=== PATIENT | female | born 1975 | race Caucasian/White ===

== ENCOUNTER → 2016-05-30 | Outpatient (CLI) | payer OTHER ==
[~2016-05-30] MED LIST: CATAPRES TTS 3 P1 EA TD; HYDROCHLOROTHIA25 MG PO; IBUPROFEN400 MG PO; LISINOPRIL10 MG PO; METFORMIN HYDR500 GM PO; NORVASC 5 MG TAB5 MG PO; NORVASC5 MG PO
== END ==
LOC: RAD 09:31
DX: M54.5 Low back pain (principal)
CPT/HCPCS: 74022

== ENCOUNTER 2016-07-16 08:16 | Emergency (ER) | payer OTHER ==
[2016-07-16 09:33] LABS: HEMOGLOBIN 14.5 gm/dl (12.3-15.3); RED BLOOD COUNT 4.82 M/UL (4.00-5.10); WHITE BLOOD COUNT 8.5 K/UL (4.5-11.0)
[2016-07-16 09:48] LABS: BUN/CREATININE RATIO 12 (0-10)
== END 2016-07-16 13:30 | disposition home or self-care (01) ==
LOC: ER1 08:16
PROVIDERS: Physician Assistant
DX: R51 Headache (principal); I10 Essential (primary) hypertension; Z79.899 Other long term (current) drug therapy; Z98.51 Tubal ligation status; E05.00 Thyrotoxicosis with diffuse goiter without thyrotoxic crisis or storm
CPT/HCPCS: 36415; 70450; 71010; 80053; 82550; 82553; 83874; 84484; 85025; 93005; 96365; 96375; 99284; J0360; J1200; J1885; J2550; J2765

== ENCOUNTER → 2020-06-26 | Outpatient (CLI) | payer BC, OTHER ==
[~2020-06-26] MED LIST changes: +CYANOCOBAL1000 MCG/1 IM; +DIABETA 5 MG TAB5 MG PO; +DITROPAN 5 MG TA5 MG PO; +DOCUSATE SODIU250 MG PO; +FERREX 150150 MG PO; +GLUCOPHAGE500 MG PO; +HYDROCODONE-AC1 EACH PO; +IBUPROFEN600 MG PO; +K-TAB ER10 MEQ PO; +LASIX TAB 20 MG20 MG PO; +STOOL SOFTENER240 MG PO; +TOPROL XL200 MG PO; +TRAMADOL HCL50 MG PO; +VALACYCLOVIR500 MG PO
[2020-06-26 08:53] LABS: HEMOGLOBIN 14.3 gm/dl (12.3-15.3); RED BLOOD COUNT 4.78 M/UL (4.00-5.10); WHITE BLOOD COUNT 9.1 K/UL (4.5-11.0)
[2020-06-26 09:10] LABS: BUN/CREATININE RATIO 17 (0-10)
== END ==
LOC: OPSV2 08:00
PROVIDERS: Obstetrics & Gynecology
DX: Z01.812 Encounter for preprocedural laboratory examination (principal); N93.8 Other specified abnormal uterine and vaginal bleeding
CPT/HCPCS: 36415; 80048; 85025; 93005

== ENCOUNTER 2020-07-03 06:33 | Day surgery (SDC) | payer BC, OTHER ==
[~2020-07-03] VITALS: Ht 165.1 cm; Wt 80.3 kg
[~2020-07-03 06:33] MED LIST changes: -DITROPAN 5 MG TA5 MG PO; -DOCUSATE SODIU250 MG PO; -HYDROCODONE-AC1 EACH PO; -IBUPROFEN600 MG PO
[2020-07-03] MEDS ORDERED: HYDROCHLOROTHIA25 MG PO (07:04)
[2020-07-03] MEDS ORDERED: DOCUSATE SODIU250 MG PO (08:05)
[2020-07-03] MEDS ORDERED: DITROPAN 5 MG TA5 MG PO (08:05)
[2020-07-03] MEDS ORDERED: IBUPROFEN600 MG PO (08:05)
[2020-07-03] MEDS ORDERED: HYDROCODONE-AC1 EACH PO (08:05)
== END 2020-07-03 15:29 | disposition home or self-care (01) ==
LOC: OR 06:33 → OB 10:27 → OR 11:30 → OB 12:46 → OR 15:29
DX: N72 Inflammatory disease of cervix uteri (principal); N87.9 Dysplasia of cervix uteri, unspecified; N80.2 Endometriosis of fallopian tube; K66.0 Peritoneal adhesions (postprocedural) (postinfection); M62.89 Other specified disorders of muscle; I10 Essential (primary) hypertension; E11.9 Type 2 diabetes mellitus without complications; G43.009 Migraine without aura, not intractable, without status migrainosus; K21.9 Gastro-esophageal reflux disease without esophagitis; E05.00 Thyrotoxicosis with diffuse goiter without thyrotoxic crisis or storm; Z88.8 Allergy status to other drugs, medicaments and biological substances; Z79.84 Long term (current) use of oral hypoglycemic drugs; Z79.899 Other long term (current) drug therapy
CPT/HCPCS: 81001; 82962; C1769; J0690; J1100; J2001; J2250; J2405; J2704; J2710; J3010; J3420; J7030; J7120

== ENCOUNTER → 2020-08-03 | Outpatient (CLI) | payer BC, OTHER ==
[~2020-08-03] MED LIST changes: +DITROPAN 5 MG TA5 MG PO; +DOCUSATE SODIU250 MG PO; +HYDROCODONE-AC1 EACH PO; +IBUPROFEN600 MG PO
== END ==
LOC: LAB 14:20
DX: Z00.00 Encounter for general adult medical examination without abnormal findings (principal); I12.9 Hypertensive chronic kidney disease with stage 1 through stage 4 chronic kidney disease, or unspecified chronic kidney disease; N18.9 Chronic kidney disease, unspecified
CPT/HCPCS: 36415; 82565; 84520

== ENCOUNTER 2020-11-16 10:49 | Inpatient (IN) | payer BC ==
[~2020-11-16] VITALS: Ht 175.3 cm; Wt 77.1 kg
[~2020-11-16 10:49] MED LIST changes: +GLUCOPHAGE 500500 MG PO; -GLUCOPHAGE500 MG PO; -LISINOPRIL10 MG PO
[2020-11-16 11:23] LABS: HEMOGLOBIN 14.4 gm/dl (12.3-15.3); RED BLOOD COUNT 4.65 M/UL (4.00-5.10); WHITE BLOOD COUNT 6.5 K/UL (4.5-11.0)
[2020-11-16] MEDS ORDERED: LISINOPRIL30 MG PO (11:42)
[2020-11-16 11:46] LABS: BUN/CREATININE RATIO 16 (0-10)
[2020-11-16] MEDS ORDERED: CLONIDINE HCL0.3 MG PO (14:17)
[2020-11-16] MEDS ORDERED: BUTALB-ACETAMI1 EAC1 PO (14:25)
[2020-11-16] MEDS ORDERED: CHLORTHALIDONE25 MG PO (14:25)
[2020-11-16] MEDS ORDERED: TYLENOL EXTRA500 MG PO (14:26)
[2020-11-16] MEDS ORDERED: TAMSULOSIN HCL0.4 MG PO (14:26)
[2020-11-16] MEDS ORDERED: MUCINEX600 MG PO (14:28)
[2020-11-16] MEDS ORDERED: LORATADINE10 MG PO (14:28)
[2020-11-17 04:02] LABS: HEMOGLOBIN 12.8 gm/dl (12.3-15.3); RED BLOOD COUNT 4.25 M/UL (4.00-5.10); WHITE BLOOD COUNT 7.1 K/UL (4.5-11.0)
[2020-11-17 04:27] LABS: BUN/CREATININE RATIO 23 (0-10)
[2020-11-18 07:48] LABS: HEMOGLOBIN 12.6 gm/dl (12.3-15.3); RED BLOOD COUNT 4.17 M/UL (4.00-5.10)
[2020-11-18 08:47] LABS: BUN/CREATININE RATIO 28 (0-10)
[2020-11-19 09:10] LABS: HEMOGLOBIN 13.3 gm/dl (12.3-15.3); RED BLOOD COUNT 4.35 M/UL (4.00-5.10); WHITE BLOOD COUNT 10.9 K/UL (4.5-11.0)
[2020-11-19] MEDS ORDERED: PROAIR HFA8.5 GM INH (09:23)
[2020-11-19] MEDS ORDERED: DECADRON6 MG PO (09:23)
[2020-11-19 09:31] LABS: BUN/CREATININE RATIO 31 (0-10)
--- NOTE | 2020-11-19 12:41 | NUR ---
PATIENT'S O2 SAT WNL ON RA. O2 TITRATION TOLERATED WELL.
== END 2020-11-19 12:36 | disposition home or self-care (01) | DRG 177 ==
LOC: ER1 10:49 → CDU 12:19 → MED SURG 4 14:09
PROVIDERS: Physician Assistant; Physician Assistant Medical; ADMIT Internal Medicine
PROC: 8E0ZXY6 Isolation (ICD-10-PCS; principal; 2020-11-16)
PROC: XW033E5 Introduction of Remdesivir Anti-infective into Peripheral Vein, Percutaneous Approach, New Technology Group 5 (ICD-10-PCS; 2020-11-16)
PROC: 3E0333Z Introduction of Anti-inflammatory into Peripheral Vein, Percutaneous Approach (ICD-10-PCS; 2020-11-16)
DX: U07.1 COVID-19 (principal); J12.82 Pneumonia due to coronavirus disease 2019; J96.01 Acute respiratory failure with hypoxia; E11.9 Type 2 diabetes mellitus without complications; I10 Essential (primary) hypertension; G43.909 Migraine, unspecified, not intractable, without status migrainosus; E87.6 Hypokalemia; Z90.710 Acquired absence of both cervix and uterus; Z98.890 Other specified postprocedural states; Z88.8 Allergy status to other drugs, medicaments and biological substances; Z82.49 Family history of ischemic heart disease and other diseases of the circulatory system; Z83.3 Family history of diabetes mellitus; Z79.84 Long term (current) use of oral hypoglycemic drugs; Z79.899 Other long term (current) drug therapy
CPT/HCPCS: 36415; 71045; 80048; 80053; 82550; 82553; 82962; 83615; 83735; 83874; 84132; 84484; 85025; 85027; 86140; 93005; 94640; 94664; 94760; 96374; 99285; J0360; J0696; J1100; J1650; J2405; J7030; Q9967; U0002